=== PATIENT | female | born 1950 | race Two or more races ===

== ENCOUNTER 2023-08-31 21:29 | Emergency (ER) | payer OTHER ==
[~2023-08-31] VITALS: Ht 134.6 cm; Wt 53.5 kg
[2023-09-01] MEDS ORDERED: PHENAGIL TABLE1 EACH PO (00:52)
== END 2023-09-01 00:56 ==
LOC: ER 21:30
DX: J06.9 Acute upper respiratory infection, unspecified (principal)